=== PATIENT | female | born 1970 | race Caucasian/White ===

== ENCOUNTER 2017-12-03 16:12 | Emergency (ER) | payer OTHER ==
[2017-12-03 16:28] VITALS: BP 180/92
--- NOTE | 2017-12-03 16:28 | ED Physician Documentation ---
General Adult - HISTORIAN Historian: patient - HPI Stated Complaint: L calf pain, swelling Chief Complaint: General Adult Onset: hours Timing: still present Severity: moderate Further Comments: yes (Pt is a 47 yo female with L calf swelling x 1 day. Pt has a tender palpable hard area in L calf. No hx DVT, no sob. Pt has a ventricular shunt to relieve intracranial pressure.) - ROS CONST: no problems EYES/ENT: none CVS/RESP: none GI/: none MS/SKIN/LYMPH: leg swelling, leg pain - PAST HX Past History: other (HLD, ventricular shunt) Allergies/Adverse Reactions: Allergies Allergy/AdvReac Type Severity Reaction Status Date / Time No Known Allergies Allergy Verified 12/03/17 16:29 Home Medications: Ambulatory Orders Medication Instructions Recorded Alprazolam [Xanax] 0.5 mg PO TID 12/03/17 Cyclobenzaprine HCl 10 mg PO TID 12/03/17 DULoxetine HCL [Cymbalta] 30 mg PO D 12/03/17 Lamotrigine [Lamictal] 150 mg PO D 12/03/17 Pregabalin [Lyrica] 50 mg PO AM 12/03/17 Pregabalin [Lyrica] 100 mg PO PM 12/03/17 Simvastatin 20 mg PO PM 12/03/17 oxyCODONE HCL/ACETAMINOPHEN 1 tab PO PRN PRN 12/03/17 [Percocet 5/325] - SOCIAL HX Smoking History: cigarettes - FAMILY HX Family History: No - REVIEWED ASSESSMENTS Nursing Assessment Reviewed: Yes Vitals Reviewed: Yes Progress - Progress Progress: D dimer not available for many hours due to lab problem u/s not available at this time at this facility Pt left ER to be evaluated more promptly in [place], [place] probable DVT General Adult Physical Exam - PHYSICAL EXAM GENERAL APPEARANCE: mild distress EENT: pharynx normal NECK: normal inspection, supple RESPIRATORY: no resp distress, chest non-tender, breath sounds normal CVS: reg rate & rhythm, heart sounds normal ABDOMEN: soft, no organomegaly, normal bowel sounds BACK: normal inspection, no CVA tenderness SKIN: warm/dry, other (L calf with palpable cord, L calf circumference 44 cm vs R 41 cm) EXTREMITIES: normal range of motion, no edema, other NEURO: oriented X3, motor nml, sensation nml Discharge Clincal Impression: Probable R calf DVT Referrals: Primary Doctor,No [Primary Care Provider] - Condition: Stable Disposition: 07 AGAINST MEDICAL ADVICE Decision to Admit: NO Decision Time: 20:49
[2017-12-03 16:59] LABS: BASOPHILS % 0.6 (0.0-1.5); EOSINOPHILS % 2.7 % (0.0-6.8); MONOCYTES % 7.8 % (0.0-11.0); NEUTROPHILS # 8.4 # k/uL (1.4-7.7)
[2017-12-03 17:17] LABS: eGFR (Non-African) > 60
[2017-12-04 07:43] LABS: MEAN CORPUSCULAR HEMOGLOBIN 30.2 pg (28.0-34.0)
== END 2017-12-03 17:30 | disposition left against medical advice (07) ==
LOC: ED 16:12
DX: Z53.9 Procedure and treatment not carried out, unspecified reason (principal); M79.605 Pain in left leg; R60.0 Localized edema
CPT/HCPCS: 80053; 85025; 85379; 85610; 85730